=== PATIENT | male | born 2005 | race Caucasian/White ===

== ENCOUNTER 2025-01-26 19:50 | Emergency (ER) | payer OTHER, SELFPAY ==
--- NOTE | 2025-01-26 20:33 | ED.GENADULT ---
HPI - General Adult General Date Seen: 01/26/25 Chief complaint: Dizziness/Vertigo Stated complaint: Feeling sick since having a monster earlier today Time Seen by Provider: 01/26/25 20:33 History of Present Illness HPI narrative: 19-year-old male who has a history of cerebral palsy with previous back surgery, chronic use of lower extremity braces. He also has a history of antithrombin 3 deficiency but no history of DVT or PE. He presents to the ER today because of dizziness, lightheadedness and feeling nauseous with symptoms beginning this afternoon after he drink a monster drink (for the 1st time in his life) this afternoon. He does not normally drink much caffeine but did drink a monster today around 3:00 p.m. and since then has been feeling nauseous, dizzy and a little bit shaky. He is not having any chest pain. He did not faint. No fever. No significant abdominal pain. No vomiting. Bowel movements normal. He has no known history of SVT or cardiac problems. Exam Narrative: Exam Narrative: Constitutional: Appears well-developed and well-nourished. Alert. Conversant and intelligent. Non toxic. HENT: Head: Atraumatic. Nose: Nose normal. Mouth/Throat: Oral mucosa is clear and moist. no trismus. Pharynx normal. Tonsils symmetric. No tonsillar enlargement, erythema, or exudate. Eyes: Conjunctivae normal. EOM normal. Pupils equal, round, and reactive to light. No scleral icterus. Neck: Normal range of motion. Neck supple. No tracheal deviation present. No JVD Cardiovascular: Normal rate, regular rhythm. No gallop. No friction rub. No murmur heard. Symmetric radial artery pulses Pulmonary/Chest: Effort normal. No stridor. No respiratory distress. No wheezes. No rales. No rhonchi . No tenderness. Abdominal: Soft. Bowel sounds normal. No distension. No mass. No tenderness. No rebound. No guarding. Musculoskeletal: RUE: Normal range of motion. No tenderness. No deformity LUE: Normal range of motion. No tenderness. No deformity RLE: Normal range of motion. No edema. No tenderness. No deformity LLE: Normal range of motion. No edema. No tenderness. No deformity. Wears bilateral lower extremity ankle braces because of foot drop. Neurological: Alert and oriented to person, place, and time. Normal strength. CN II-VII intact. No sensory deficit. GCS eye subscore is 4. GCS verbal subscore is 5. GCS motor subscore is 6. Normal coordination Skin: Skin is warm and dry. No rash noted. No pallor. Normal capillary refill. Psychiatric: Normal mood. Normal affect. Const: Vital Signs, click to edit/add: Vital Signs - 24 hr 01/26/25 20:35 Temperature 98.0 F Pulse Rate [Pulse Oximeter] 81 Respiratory Rate 18 [facility] 132/88 Pulse Oximetry 98 Oxygen Delivery Me thod Room Air Course Vital Signs Vital signs: Initial Vital Signs Temperature 98.0 F 01/26/25 20:35 Temperature Source Temporal Artery Scan 01/26/25 20:35 Pulse Rate 81 01/26/25 20:35 Pulse Rhythm Regular 01/26/25 20:35 Respiratory Rate 18 01/26/25 20:35 Blood Pressure 132/88 01/26/25 20:35 Blood Pressure Mean 102 01/26/25 20:35 Blood Pressure Position Sitting 01/26/25 20:35 Pulse Oximetry 98 01/26/25 20:35 Oxygen Delivery Method Room Air 01/26/25 20:35 Vital Signs Temperature 98.0 F 01/26/25 20:35 Pulse Rate 81 01/26/25 20:35 Respiratory Rate 18 01/26/25 20:35 Blood Pressure 132/88 01/26/25 20:35 Pulse Oximetry 98 01/26/25 20:35 Oxygen Delivery Method Room Air 01/26/25 20:35 Temperature 98.0 F 01/26/25 20:35 Pulse Rate 81 01/26/25 20:35 Respiratory Rate 18 01/26/25 20:35 Blood Pressure 132/88 01/26/25 20:35 Pulse Oximetry 98 01/26/25 20:35 Oxygen Delivery Method Room Air 01/26/25 20:35 Medical Decision Making MDM Narrative Medical decision making narrative: This patient presents for evaluation of dizziness and lightheaded and nausea after drinking a highly caffeinated beverage (patient does not normally drink caffeine). Initial ECG shows normal sinus rhythm and no dysrhythmogenic abnormality such as WPW, prolonged QT, Brugada syndrome, and no ischemia. Vital signs including blood pressure, pulse, oxygen, respiratory rate, temperature are normal. A broad differential diagnosis was considered including SVT, Atrial fibrillation, ventricular arrhythmia, thyroid disease, acute electrolyte abnormality, drugs/medications, caffeine intake or other stimulants, medication side effect, anemia, heart disease, PE, among others. At this point we suspect that his symptoms are probably related to caffeine intake. Abdominal exam is benign and nontender here in the ER. I do not see any evidence for gastroenteritis, cholecystitis, early appendicitis, or other cause of his symptoms. At this point I do not think he needs labs or advanced imaging. Clinical judgement suggests that supportive outpatient management is indicated. He feels better ups or observation and oral hydration here in the ER. He is comfortable discharging home. He politely declines my offer for a note for his professors or to have a conversation with his parents. Will notify them of his condition later. We discussed precautions for return to the ER. Questions answered. ECG Data Interpretation: Normal sinus rhythm with sinus arrhythmia Rate 85 MS interval 140 No pathologic Q-waves. No delta waves. Normal QRS axis. Large QRS voltages in the precordial leads likely reflect thin body habitus. No ST segment elevation or depression. QT of 370, QTC 440. 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 Her vital signs are stable. Right now we suspect her symptoms are triggered by the caffeine consumption. We expect he should be completely normal within the next couple of hours. Please come back to the ER right away if you have any concerns or if you develop any other new concerning symptoms such as chest pain, trouble breathing, recent heart, skipping heartbeats, vomiting, fever, or worsening abdominal pain. Thank you for coming to the ER. Good luck! Follow Up/Referrals: Provider,Not a Local [Primary Care Provider, Family Practice] Stand Alone Forms: [employer] Info Instructions
[2025-01-26 20:35] VITALS: BP 132/88; PULSE 81; RESP 18; TEMP 36.7; O2SAT 98; BMI 25.8
--- OUTSIDE RECORDS SUMMARY | 2025-01-26 21:09 | XMS_ITS | Clinical Summary ---
Author Organization [facility] Address [address] [place] [address] Care Team Providers Care Model And Pattern Supervisor Name Role Phone Shad Powers MD Primary Care Provider [phone] Source Comments You are receiving this document as you are listed as the primary care provider,follow-up provider, or the patient has been referred to you for consultation.This is in compliance with the Medicare and[employer] [facility] EHR Incentive Program,which states Providers who transition their patient to another setting of careor provider of care or refers their patient to another provider of care shouldprovide summary care record for each transition of care or referral. [facility] Allerg[facility] Active Allergy Reactions Criticality Noted Date Comments Azithromycin Nausea And Vomiting 07/06/2010 Able to tolerate azithromycin in September 2011. Cephalosporins Rash 2005 Medications cetirizine (ALL DAY ALLERGY CHILDRENS) 5 MG/5ML syrup Take 10 mLs by mouth daily as needed for Allergies. 118 mL 3 08/06/2012 Active fluticasone (FLONASE) 50 MCG/ACT nasal solution Place 1-2 Sprays into both nostrils daily. Use Apr 27-Dec 1. DO NOT FILL TODAY. HOLD RX UNTIL PT CALLS TO FILL 16 g 11 04/17/2017 Active Active Problems Problem Noted Date Diagnosed Date Migraine without aura and wi thout status migrainosus, not intractable 10/10/2018 Overview (10/10/2018): Intermittent - using acetaminophen 650, ibuprofen 400 mg Hereditary antithrombin III deficiency 5 Overview (08/17/2022): Children's hem/onc visit 11/17/16: has been given thrombate and prophylactic anticoagulation for major orthopedic procedures in the past. No treatment for more minor procedures If going to be non-ambulatory needs lovenox 0.5 mg/kg bid until fully ambulatory and recommend checking anti-Xa level after 2nd or 3rd dose with goal level 0.1-0.3. 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 June 2014- selective dorsal rhizotomy. Lower extremity realignment procedure recommended for lumbar hyperlordosis, femoral anteversion and midfoot instability (with pes valgus) Nov 2015. Bilateral femoral osteotomies, bilateral os calcis lengthening, bilateral 1st cuneiform plantar flexion osteotomy, bilateral gastrocnemius recessions Plan bilateral proximal femoral plate removal - Nov 2016. Last Ortho follow up 02/24/22 - Dr. Marcus @ [facility] - no x-rays, continue to be physical active to work on core strength and stamina, follow up 1 yr. Convert AFOs to UCBLs Last PM&R follow up in May 2022 Dr. Cox - doing well without any loss of range of motion or function. continue hinged AFOs and UCBLs. Recommend weight lifting and aerobic activities. Follow up in 1 year. Gross Motor Function Classification System (GMFCS) Level II (out of V), Functional mobility Scale of 5, 5, 5, MACS of 1. Allergic rhinitis 08/26/2010 Overview (09/22/2017): flonase during summer and zyrtec PRN summer Seborrheic dermatitis 2005 Overview (10/19/2016): LW Modifier: scalp LW Onset: 86Meh23 ; Seborrheic Dermatitis NOS Resolved Problems Problem Noted Date Diagnosed Date Resolved Date Developmental delay 08/28/2014 08/07/19 21 Overview (11/28/2016): 11/2016 adaptive phy ed Chronic constipation 09/07/2011 018 Nocturnal enuresis 10/13/2010 5 Mild intermittent asthma without complication 08/27/19 11 08/06/2020 Overview (10/10/2018): Cold and viral induced. Just has prolonged cough with colds. No exercise induced or seasonal symptoms appreciated. Dermatitis due to food taken internally 2005 10/19/2009 Overview (10/19/2016): Allergy Food Contact dermatitis and eczema 2005 10/19/2009 Overview (10/19/2016): LW Onset: [id number] ; Eczema Esophageal reflux 2005 10/19/2009 Overview (10/19/2016): LW Onset: 49Pdv72 ; Gastroesophageal Reflux Disease Hypermobile joints 6 Immunizations Immunization Administration Dates Next Due 9vHPV (Gardasil 9) 02/23/2017,08/17/2016 Bexsero (Meningococcal Group B Vaccine) 10/20/2023,09/13/2023 JGdT-UlhS-GCS (Pediarix) 2005,2005,0 2005 DTaP-IPV (Kinrix, 4-6 yrs) 03/29/2010 DTaP/Hib 06/14/2006 Flu Vac Preserv Free (3+yrs) 01/10/2012,12/19/19 09 Flu Vac Preserv Free (6-35 mo) 12/22/2006,2005,2005 Fluzone Qiv Multidose Vial 0 .25 (6-35 Mos) 01/05/2021 HepA Ped/Adol (1-18 yrs) 03/16/2007,09/11/2006 Hib (PedvaxHIB) 2005,2005 Influenza (Flucelvax), Prese rv Free QIV 01/05/2022 Influenza IIV4 (Quadrivalent ) 0.5mL ([id number]) 01/22/2023,11/19/2019,01/15/2019,2017,01/13/2017,12/25/2014,12/13/2013,1 Influenza LAIV (Nasal, 2-49 yrs) 03/29/2010,06/2007 Influenza LAIV3 2-49 years (Flumist) 12/17/2010, 03/29/2010 MCV4 Menveo 2m.+ (two vial) 07/17/2021, 7 MMR 03/29/2010 MMRV (ProQuad) 2006 Moderna Bivalent 12+ 01/05/2022 Moderna COVID-19 12+ (Spikevax) 11/30/2023 Pfizer Monovalent 12+ Purple Top 03/16/2021,04/2020,07/11/2020 Pneumococcal 7, PED 06/14/2006, 6,2005,2005 Tdap 08/17/2016 Varicella 03/29/2010 Family History Medical History Relation Name Comments Allergies Mother Clotting Disorder Mother Antithromb in III deficiency DVT/PE Mother Cataract Maternal Grandfather High Cholesterol Maternal Grandfather Hypertension Maternal Grandfather Cataract Maternal Grandmother Clotting Disorder Maternal Grandmother An tithrombin III deficiency Amblyopia/Strabismus Negative Family History Blindness Negative Family History Diabetes Negative Family History Glaucoma Negative Family History Macular Degeneration Negative Family History Retinal Detachment Negative Family History Stroke Negative Family History Thyroid Disorder Negative Family History Relation Name Status Comments Mother Maternal Grandfather Maternal Grandmother Social History Tobacco Use Types Packs/Day Years Used Date Smoking Tobacco: Never Passive Smoke Exposure: Never Smokeless Tobacco: Never Tobacco Cessation:Counseling Given: Not Answered Alcohol Use Standard Drinks/Week Comments Never 0 (1 standard drink = 0.6 oz pur e alcohol) PHQ-2 Answer Date Recorded PHQ-2 Score 0 10/21/2024 Hunger Vital Sign Answer Date Recorded Within the past 12 months, y ou worried that your food would run out before you got the money to buy more. Never true 10/19/19 25 Within the past 12 months, t he food you bought just didn't last and you didn't have money to get more. Never true 10/18/2024 PRAPARE - Transportation Answer Date Re corded In the past 12 months, has l ack of transportation kept you from medical appointments or from getting medications? No 09/28 In the past 12 months, has l ack of transportation kept you from meetings, work, or from getting things needed for daily living? No 10/18/2024 Housing Stability Vital Sign Answer Nathan e Recorded In the last 12 months, was t here a time when you were not able to pay the mortgage or rent on time? No 10/18/2024 In the past 12 months, how m any times have you moved where you were living? 2 10/18/2024 At any time in the past 12 m [facility], were you homeless or living in a longterm (including now)? 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 Inhaled Oxygen Concentration - - Weight 64 kg (141 lb) 10/21/2024 3:14 PM CDT Height 170.2 cm (5' 7) 10/21/2024 3:14 PM CDT Head Circumference 50.8 cm 03/30/2010 9:23 AM 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 WALL GRINDER OPERATOR C: 50.8cm Body Mass Index 22.08 10/21/2024 3:14 PM CDT Plan of Treatment Health Maintenance Due Date Last Done Comments Hep C Screening (Preventive Services) 2005 COVID-19 Vaccine ( season) 2024 11/30/2023, 01/05/2022, 03/16/2021, Additional history exists Influenza Vaccine (#1) 2024 3, 01/05/2022, 01/05/2021, Additional history exists Adult Preventive Visit 10/21/2025 , 09/13/2023, 08/17/2022, Additional history exists DTaP/Tdap/Td Vaccine (7 - Tdap) 08/17/2026 08/17/2016, 03/29/2010, 06/14/2006, Additional history exists Zoster/Shingles Vaccine (1 of 2) 2055 HepB Vaccine Completed 2005, 06/27, 2005 Hib Vaccine Completed 06/14/2006, 06/27, 2005 Pneumococcal Vaccine Aged Out 06/14/2006, 2005, 2005, Additional history exists No longer eligible based on patient's age to complete this topic HepA Vaccine Completed 03/16/2007, 09/11/2006 IPV (Polio) Vaccine Completed 03/29/2010, 2005, 2005, Additional history exists Varicella Vaccine Completed 03/29/2010, 2006 HPV Vaccine Completed 02/23/2017, 08/17/2016 MCV4 Vaccine Completed 07/17/2021, 08/17/2016 HIV Screening (Preventive Services) Completed 04/27/2022 (Completed) Meningococcal B Vaccine Completed 10/20/2023, 09/12 Insurance SELF MANAGED CARE SEL[employer] Care Teams Model And Pattern Supervisor Relationship Specialty Start Date End Date Shad Powers MD [address] [place], [place] [address] PCP - General Family Practice 10/21/24
== END 2025-01-26 21:39 | disposition home or self-care (01) ==
PROVIDERS: Emergency Provider Emergency Medicine
DX: R42 Dizziness and giddiness (principal); R11.0 Nausea; T43.615A Adverse effect of caffeine, initial encounter
CPT/HCPCS: 93005; 99282; 99284